=== PATIENT | female | born 1980 | race Caucasian/White ===

== ENCOUNTER 2022-07-19 08:05 | Outpatient (CLI) | payer OTHER, SELFPAY ==
--- NOTE | 2022-07-19 08:15 | CRLHL7_ITS ---
For Patients: As a result of the Century Cures Act, medical imaging exams and procedure reports are released immediately into your electronic medical record. You may view this report before your referring provider. If you have questions, please contact your health care provider. BILATERAL SCREENING MAMMOGRAM WITH COMPUTER-AIDED DETECTION TECHNIQUE: CC and MLO views were obtained. These mammographic images have been obtained using full-field digital technique. These mammographic images were interpreted with the benefit of computer-aided detection. COMPARISON FILM: 07/18/21, 06/09/20. FINDINGS: The breasts are extremely dense, which lowers the sensitivity of mammography IMPRESSION: There is no radiographic evidence for malignancy. ASSESSMENT: BI-RADS Category 1: Negative RECOMMENDATION: Routine screening mammogram in 1 year. A lay language report of this examination will be provided to the patient. Eugene Pierson M.D. Diagnostic Radiologist [email or web address] Transcribed: 4:49 p.krunal duarte/Dictated by: Eugene Pierson MD @ 07/19/2022 10:12:00 AM (Electronically Signed)
== END 2022-07-19 08:06 | disposition home or self-care (01) ==
LOC: MAMMO 08:06
PROVIDERS: Visit Provider Obstetrics & Gynecology
DX: Z12.31 Encounter for screening mammogram for malignant neoplasm of breast (principal); R92.2 Inconclusive mammogram
CPT/HCPCS: 77067

== ENCOUNTER 2023-07-23 08:06 | Outpatient (CLI) | payer OTHER, SELFPAY ==
--- NOTE | 2023-07-23 08:15 | MM_ITS ---
Patient: ANNETTE CANTOR Facility:?[facility] Patient ID:?[id number] Site Patient ID:?[id number] Site :?[id number] Study:?XRay-Breast Bilateral 3D W/CAD-07/23/2023 8:30:47 AM Ordering Physician:Amalia Final Report: BILATERAL SCREENING MAMMOGRAM WITH COMPUTER-AIDED DETECTION AND TOMOSYNTHESIS TECHNIQUE: CC and MLO views were obtained. These mammographic images have been obtained using full-field digital technique. These mammographic images were interpreted with the benefit of computer-aided detection. Breast Tomosynthesis was used in this interpretation. COMPARISON FILM: 07/19/22, 07/18/21, 06/09/20. FINDINGS: The breasts are heterogeneously dense, which may obscure small masses. IMPRESSION: There is no radiographic evidence for malignancy. ASSESSMENT: BI-RADS Category 1: Negative RECOMMENDATION: Routine screening mammogram in 1 year. A lay language report of this examination will be provided to the patient. Eugene Pierson M.D. Diagnostic Radiologist [email or web address] DSM/sp R& Transcribed: 3:10 p.m. SP/Dictated by: Eugene Pierson MD @ 07/23/2023 8:57:00 AM Signed by:?Eugene Pierson MD @07/23/2023 3:18:24 PM (Electronic Signature)
== END 2023-07-23 08:07 | disposition home or self-care (01) ==
LOC: MAMMO 08:07
PROVIDERS: Visit Provider Obstetrics & Gynecology
DX: Z12.31 Encounter for screening mammogram for malignant neoplasm of breast (principal)
CPT/HCPCS: 77063; 77067

== ENCOUNTER 2024-08-12 13:52 | Outpatient (CLI) | payer OTHER, SELFPAY ==
--- NOTE | 2024-08-12 14:00 | CRLHL7_ITS ---
For Patients: As a result of the Century Cures Act, medical imaging exams and procedure reports are released immediately into your electronic medical record. You may view this report before your referring provider. If you have questions, please contact your health care provider. INDICATION: BILATERAL SCREENING MAMMOGRAM, ASYMPTOMATIC 44 F COMPARISON: 07/23/23, 07/19/22, 07/18/21 TECHNIQUE: CC and MLO views were obtained. These mammographic images have been obtained using full-field digital technique. These mammographic images were interpreted with the benefit of computer aided detection and tomosynthesis. BREAST COMPOSITION: The breasts are extremely dense, which lowers the sensitivity of mammography. FINDINGS: No suspicious findings. ASSESSMENT: BI-RADS 1 Negative RECOMMENDATION: Annual screening mammogram. A lay language report of this examination will be provided to the patient. Dictated by: Eugene Pierson MD @ 08/15/2024 11:28:33 (Electronically Signed)
== END 2024-08-12 13:53 | disposition home or self-care (01) ==
LOC: MAMMO 13:53
PROVIDERS: Visit Provider Obstetrics & Gynecology
DX: Z12.31 Encounter for screening mammogram for malignant neoplasm of breast (principal); R92.343 Mammographic extreme density, bilateral breasts
CPT/HCPCS: 77063; 77067

== ENCOUNTER 2024-12-15 09:55 | Outpatient (CLI) | payer OTHER, SELFPAY | END 2024-12-15 09:56 | disposition home or self-care (01) | PROVIDERS: Visit Provider Obstetrics & Gynecology | DX: Z13.6 Encounter for screening for cardiovascular disorders (principal); F41.9 Anxiety disorder, unspecified | CPT/HCPCS: 80048; 80061 ==

== ENCOUNTER 2024-12-16 16:34 | Outpatient (CLI) | payer OTHER, SELFPAY ==
--- NOTE | 2024-12-16 16:45 | CRLHL7_ITS ---
For Patients: As a result of the Century Cures Act, medical imaging exams and procedure reports are released immediately into your electronic medical record. You may view this report before your referring provider. If you have questions, please contact your health care provider. INDICATION: Benign neoplasm of connective and other soft tissue COMPARISON: 07/25/2018 TECHNIQUE: 2D calvo-scale and color Doppler images were acquired of the pelvis using a transabdominal and transvaginal approach. Transvaginal imaging performed to better visualize the endometrial stripe and ovaries. FINDINGS: Anterior intramural fibroid measures 10 x 8 x 7 millimeters. Posterior left-sided fibroid measures 14 x 11 x 14 millimeters. Posterior right fibroid measures 12 x 12 x 14 millimeters. Uterus measures 11.4 cm in length by 4.6 cm in AP diameter by 6.5 cm in transverse dimension. The endometrial lining measures 10 mm in composite thickness. The right ovary measures 3.1 x 1.8 x 2.0 cm in size and the left ovary measures 3.0 x 1.8 x 1.6 cm. The ovaries demonstrate normal arterial and venous blood flow on color Doppler analysis. There are no suspicious fluid collections within the cul-de-sac. IMPRESSION: Multiple uterine fibroids measure up to 1.4 cm. Unremarkable ovaries. Dictated by Eugene Pierson MD @ 12/17/2024 7:17:46 AM (Electronically Signed)
== END 2024-12-16 16:35 | disposition home or self-care (01) ==
LOC: US 16:35
PROVIDERS: Visit Provider Obstetrics & Gynecology
DX: D25.9 Leiomyoma of uterus, unspecified (principal)
CPT/HCPCS: 76830; 76856